=== PATIENT | female | born 1950 | race Caucasian/White ===

== ENCOUNTER 2018-06-24 07:02 | Day surgery (SDC) | payer OTHER ==
[2018-06-23 12:50] VITALS: BMI 24.3
[2018-06-24] MEDS ORDERED: MIDAZOLAM HCL 2 MG/2 ML SINGLE DOSE VIAL ONE ×2 (08:36)
--- NOTE | 2018-06-24 09:09 | HP ---
Satellite [facility] - Chief Complaint Chief Complaint: left shoulder pain - Past Medical History Allergies/Adverse Reactions: Allergies Allergy/AdvReac Type Severity Reaction Status Date / Time No Known Drug Allergies Allergy Verified 06/23/18 12:53 - Current Medications Current Medications: Home Medications Medication Instructions Recorded Hydrocodone/Acetaminophen 1 each PO Q6H #30 tablet MDD 4 06/24/18 [Hydrocodone-Acetamin 5-325 mg] Satellite Physical Exam - Physical Examination Vital Signs: Vital Signs Period Temp Pulse Resp BP Sys/Bey Pulse Ox Last 24 Hr 98 F 63 18 134/63 100 General Appearance: Well Nourished, Well Developed, Alert & Oriented x3 ENT: Clear Lung: Normal air movement Heart: Regular rate & rhythm Extremities: Other (left shoulder- + ttp, decr rom, + neer, +rivera, + empty can, nvi MRI + rct) Neurological: Intact, Alert, Oriented Satellite Impression/Plan - Impression/Plan Impression: left shoulder rct Operative Procedure: left shoulder arthroscopy with RCR, SAD Date to be Performed: 06/24/18
[2018-06-24] MEDS ORDERED: ceFAZolin SODIUM 1 GM VIAL IVPB ONE (09:35)
[2018-06-24] MEDS ORDERED: ROPIVACAINE HCL 0.5% 30ML VIAL ONE (09:35)
[2018-06-24] MEDS ORDERED: ePHEDrine SULFATE 50 MG/1 ML AMPULE ONE (10:12)
[2018-06-24] MEDS ORDERED: DESFLURANE GAS 240 ML BOTTLE IH ONE (10:15)
[2018-06-24] MEDS ORDERED: oxyCODONE HCL 5 MG TABLET PO PRN (10:56)
[2018-06-24] MEDS ORDERED: ONDANSETRON 4 MG/2 ML VIAL IVPUSH PRN (10:56)
[2018-06-24] MEDS ORDERED: LACTATED RINGERS SOLUTION 1,000 ML IV SCH (11:00)
--- NOTE | 2018-06-24 11:00 | OP ---
Operative Note - Note: Operative Date: 06/24/18 ([facility]) Pre-Operative Diagnosis: left shoulder rct, labral tear Operation: left shoulder arthroscopyh with labral repair, SAD Post-Operative Diagnosis: Same as Pre-op Surgeon: Shant Hunter Certified Medical Records Coder: Fermin Fall Anesthesiologist/BOOSTER PLANT OPERATOR: Virgilio Lawler Anesthesia: General, Local Specimens Removed: shavings Estimated Blood Loss (mls): 5 Operative Report Dictated: Yes
--- NOTE | 2018-06-24 11:03 | OP ---
Operative Note - Note: Operative Date: 06/24/18 Pre-Operative Diagnosis: left shoulder impingement syndrome, labral tear/SLAP tear Operation: left shoulder arthroscopy, subacromial decompression, distal clavicle excision, labral repair Implants: Arthrex Push Lock anchor x 2, Fiber wire x 2 Surgeon: Shant Hunter Light Industrial Supervisor: Fermin Fall Anesthesiologist/PERCUSSION INSTRUMENT TUNER: Virgilio Lawler Anesthesia: General Specimens Removed: shavings Estimated Blood Loss (mls): 50 Drains, Volume Out (mls): 0 Blood Volume Replaced (mls): 0 Fluid Volume Replaced (mls): 700 Operative Report Dictated: Yes
--- NOTE | 2018-06-24 12:33 | OP ---
DATE OF OPERATION: 06/24/2018 PREOPERATIVE DIAGNOSIS: Left shoulder labral tear and subacromial impingement. POSTOPERATIVE DIAGNOSIS: Left shoulder labral tear and subacromial impingement. PROCEDURE: Left shoulder arthroscopy, subacromial decompression, distal clavicle excision, and arthroscopic labral repair. SURGEON: Shant Hunter MD MILLED RICE BROKER: FELIPE Hansen JEWELRY MOLD MAKER: Virgilio Lawler CRNA DRAINS: None. COMPLICATIONS: None. SPECIMENS: Arthroscopic shavings. BLOOD LOSS: Minimal. BLOOD GIVEN: None. FLUID REPLACEMENT: 500 mL. INDICATIONS: This patient is a 67-year-old female with a preoperative diagnosis of left shoulder impingement syndrome and a labral tear. After understanding the potential risks, complications, alternatives, and benefits of surgery versus nonsurgical treatment, the patient elected to undergo this procedure. DESCRIPTION OF PROCEDURE: The patient was brought to the operating room, peripheral IV placed, IV sedation was given, 2 g of IV Ancef were given. Left interscalene block was performed. LMA anesthesia was induced. She was placed into the beach-chair position with ample padding throughout. The left upper extremity was prepped and draped in a sterile fashion. The bony landmarks were marked out with a marking pen. Posterior portal was established, and a diagnostic glenohumeral arthroscopy was performed. Patient was seen to have an obvious tear of the labrum from the 9 o'clock to the 12 o'clock position. An anterior portal was then established under direct visualization using a spinal needle, and a shaver used to debride the torn portion of the labrum. I then probed it. It seemed to be a complete tear, but quite repairable. A rasp was then used to freshen up the bony surface beneath the labrum. Then, using the standard technique, 2 FiberWires were placed and 2 Arthrex PushLock anchors were placed into the edge of the glenoid. This brought the labrum down quite nicely. Tails were cut, photographs were taken. Next, our attention turned to the subacromial space. Patient had a tremendous amount of inflammatory bursitis. Lateral portal was established. Extensive debridement/soft tissue bursectomy was performed with the ArthroCare Wand. This revealed a moderate sized distal clavicle and subacromial bony spur. These were both taken down with a 5.5-mm oval antoni, fine-tuned in reverse with the shaver to reduce any debris, small ridges, to better visualize the top of the rotator cuff. The arm was put through a range of motion. There was no top-surface rotator cuff tear. There was no under-surface rotator cuff tear. The area was copiously irrigated and washed out, and all excess saline and debris were removed. The arthroscopic portals were closed with 3-0 nylon sutures, covered with Aquacel. The patient was put into a shoulder immobilizer, extubated. The total operative time was about 1 hour. There were no complications during the case. The patient tolerated the procedure quite well and was brought to the ambulatory recovery room in stable condition. Ilda [id number]
[2018-06-24 13:25] VITALS: TEMP 96.3
[2018-06-24 14:50] VITALS: BP 140/68; PULSE 95
--- NOTE | 2018-06-25 14:30 | PATH ---
Surgical Pathology Report Patient Name: CARLOS SANTO Med. Rec. #: [id number] /Age/Gender: 1950 (Age: 67) / F Account: [id number] Location: [facility] SURGICAL Taken: 06/24/2018 Received: 06/24/2018 Reported: 06/25/2018 Physicians: Shant Hunter M.D. Specimen(s) Received LEFT SHOULDER SHAVINGS Clinical History Left shoulder labral tear and impingement syndrome Final Diagnosis SHOULDER SHAVINGS, LEFT, ARTHROSCOPY, SUBACROMIAL DECOMPRESSION AND LABRUM REPAIR: FRAGMENTS OF BENIGN CARTILAGE, DENSE FIBROCONNECTIVE TISSUE, ADIPOSE TISSUE, BONE, AND SKELETAL MUSCLE. Electronically Signed Ny Xiao M.D. Gross Description Received in formalin labeled "left shoulder shavings," is a 1.4 x 1.0 x 0.2 cm aggregate of [place]era-yellow soft tissue fragments. The specimen is submitted in toto in one cassette. /06/24/201806/24/2018
== END 2018-06-24 14:40 | disposition home or self-care (01) ==
LOC: JASU-SURG 07:02
PROVIDERS: ATTEND Orthopaedic Surgery
PROC: 0RQK4ZZ Repair Left Shoulder Joint, Percutaneous Endoscopic Approach (ICD-10-PCS; 2018-06-24)
PROC: 0MM24ZZ Reattachment of Left Shoulder Bursa and Ligament, Percutaneous Endoscopic Approach (ICD-10-PCS; principal; 2018-06-24 09:00)
DX: S43.492A Other sprain of left shoulder joint, initial encounter (principal); M75.42 Impingement syndrome of left shoulder; X58.XXXA Exposure to other specified factors, initial encounter; Y93.9 Activity, unspecified; Y92.9 Unspecified place or not applicable; Y99.9 Unspecified external cause status
CPT/HCPCS: 88304-TC; 94760